=== PATIENT | female | born 1960 | race American Indian/Alaskan Native ===

== ENCOUNTER 2021-12-12 00:26 | Inpatient (IN) | payer SELFPAY ==
[2021-12-12] MEDS ORDERED: IPRATROPIUM/ALBUTEROL SULFATE 3 ML AMPUL.NEB IH ONE (00:41)
--- NOTE | 2021-12-12 00:45 | Emergency Department Report ---
ED Shortness of Breath HPI - General Chief Complaint: Dyspnea/Respdistress Stated Complaint: SHORTNESS OF BREATH Time Seen by Provider: 12/12/21 00:40 Source: patient, family Mode of arrival: Wheelchair Limitations: No Limitations - History of Present Illness Initial Comments: 61-year-old female no significant past medical history presents to the hospital with complaints of shortness of breath started 15 minutes prior to arrival. Patient is noticeably tachypneic, anxious, and laying on the ground instead of the initial triage chair. Pulse oximetry reveals a room air saturation between 88 and 90%. Supplemental oxygen provided and patient transported to room. Family states that patient had an episode of shortness of breath yesterday that spontaneously improved but recurred today 15 minutes prior to arrival. Patient is vaccinated for COVID. No reported infectious symptoms. Patient is a longtime smoker without a history of COPD or asthma FABRIZIO [phone] - Related Data Allergies Allergy/AdvReac Type Severity Reaction Status Date / Time No Known Allergies Allergy Unverified 12/12/21 00:32 ED Review of Systems ROS: Stated complaint: SHORTNESS OF BREATH Other details as noted in HPI Comment: Unobtainable due to pts medical conditions ED Past Medical Hx - Past Medical History Previous Medical History?: No - Surgical History Past Surgical History?: No ED Physical Exam - General Limitations: No Limitations - Other Other exam information: General: Acute respiratory distress Head: Atraumatic Eyes: normal appearance ENT: Moist mucous membranes Neck: Normal appearance, no midline tenderness Chest: Tachypneic, poor breath sounds, accessory muscle CV: Regular rate and rhythm Abdomen: Soft, normal bowel sounds, nontender, nondistended, no rebound or guarding Back: Normal inspection Extremity: Normal inspection, full range of motion Neuro: Alert O x 3, no facial asymmetry, speech clear, no gross motor sensory deficit Skin: No rash ED Course Vital Signs 12/12/21 12/12/21 12/12/21 00:42 00:45 00:53 Pulse Rate 118 H Pulse Rate [ 108 H Anterior Bilateral Throughout] Respiratory 49 H Rate Respiratory 36 H Rate [Anterior Bilateral Throughout] Blood Pressure 173/94 O2 Sat by Pulse 97 99 Oximetry 12/12/21 12/12/21 12/12/21 01:01 01:15 01:31 Pulse Rate 111 H 103 H 98 H Pulse Rate [ Anterior Bilateral Throughout] Respiratory 34 H 37 H 32 H Rate Respiratory Rate [Anterior Bilateral Throughout] Blood Pressure 160/88 160/88 142/77 O2 Sat by Pulse 100 97 95 Oximetry - Reevaluation(s) Reevaluation #1: 12/12/21 02:00 Patient feeling better after DuoNeb and supplemental oxygen - Consultations Consultation #1: 12/12/21 02:30 case discussed with sap solution manager consultant Dr Brown who highly suspect heart failure. Does not recommend Lovenox at this time. Consult ordered ED Medical Decision Making - Lab Data Result diagrams: 12/12/21 00:49 12/12/21 00:49 Lab Results 12/12/21 12/12/21 12/12/21 Range/Units 00:49 00:49 00:49 WBC 10.3 (4.5-11.0) K/mm3 RBC 4.73 (3.65-5.03) M/mm3 Hgb 13.0 (10.1-14.3) gm/dl Hct 41.6 (30.3-42.9) % MCV 88 (79-97) fl MCH 27 L (28-32) pg MCHC 31 (30-34) % RDW 14.1 (13.2-15.2) % Plt Count 139 L (140-440) K/mm3 Lymph % (Auto) Med Surg Nurse Lymph # (Auto) Med Surg Nurse PT 14.4 (12.2-14.9) Sec. INR 1.01 (0.87-1.13) ABG pH (7.350-7.450) pH Units ABG pCO2 mm Hg ABG pO2 (80.0-90.0) mm Hg ABG HCO3 (20.0-26.0) mmol/L ABG O2 Saturation (95.0-99.0) % ABG O2 Content (0.0-44) ABG Base Excess (-2.0-3.0) mmol/L ABG Hemoglobin (12.0-16.0) gm/dl ABG Carboxyhemoglobin (0.0-5.0) % ABG Methemoglobin (0.0-1.5) % Oxyhemoglobin (95.0-99.0) % FiO2 % Sodium 141 (137-145) mmol/L Potassium 4.0 (3.6-5.0) mmol/L Chloride 103.8 (98-107) mmol/L Carbon Dioxide 16 L (22-30) mmol/L Anion Gap 25 mmol/L BUN 13 (7-17) mg/dL Creatinine 1.2 (0.6-1.2) mg/dL Estimated GFR 55 ml/min BUN/Creatinine Ratio 11 % Glucose 312 H (65-100) mg/dL Calcium 9.3 (8.4-10.2) mg/dL Total Bilirubin 0.50 (0.1-1.2) mg/dL AST 52 H (5-40) units/L ALT 47 (7-56) units/L Alkaline Phosphatase 57 (35-129) units/L Troponin T 0.075 H (0.00-0.029) ng/mL NT-Pro-B Natriuret Pep 85851 H (0-900) pg/mL Total Protein 6.6 (6.3-8.2) g/dL Albumin 4.3 (3.9-5) g/dL Albumin/Globulin Ratio 1.9 % 12/12/ Range/Units 01:20 WBC (4.5-11.0) K/mm3 RBC (3.65-5.03) M/mm3 Hgb (10.1-14.3) gm/dl Hct (30.3-42.9) % MCV (79-97) fl MCH (28-32) pg MCHC (30-34) % RDW (13.2-15.2) % Plt Count (140-440) K/mm3 Lymph % (Auto) Lymph # (Auto) PT (12.2-14.9) Sec. INR (0.87-1.13) ABG pH 7.367 (7.350-7.450) pH Units ABG pCO2 29.2 mm Hg ABG pO2 104.5 H (80.0-90.0) mm Hg ABG HCO3 16.4 L (20.0-26.0) mmol/L ABG O2 Saturation 97.8 (95.0-99.0) % ABG O2 Content 16.5 (0.0-44) ABG Base Excess -7.7 L (-2.0-3.0) mmol/L ABG Hemoglobin 12.3 (12.0-16.0) gm/dl ABG Carboxyhemoglobin 2.8 (0.0-5.0) % ABG Methemoglobin 0.6 (0.0-1.5) % Oxyhemoglobin 94.5 L (95.0-99.0) % FiO2 32 % Sodium (137-145) mmol/L Potassium (3.6-5.0) mmol/L Chloride (98-107) mmol/L Carbon Dioxide (22-30) mmol/L Anion Gap mmol/L BUN (7-17) mg/dL Creatinine (0.6-1.2) mg/dL Estimated GFR ml/min BUN/Creatinine Ratio % Glucose (65-100) mg/dL Calcium (8.4-10.2) mg/dL Total Bilirubin (0.1-1.2) mg/dL AST (5-40) units/L ALT (7-56) units/L Alkaline Phosphatase (35-129) units/L Troponin T (0.00-0.029) ng/mL NT-Pro-B Natriuret Pep (0-900) pg/mL Total Protein (6.3-8.2) g/dL Albumin (3.9-5) g/dL Albumin/Globulin Ratio % - EKG Data -: EKG Interpreted by Me (By atrial enlargement, PVC) EKG shows normal: sinus rhythm, intervals (Prolonged QTC 529), QRS complexes (Prolonged QRS duration 118), ST-T waves (LVH with lateral ST depressions, inferior lateral T inversions) Rate: tachycardia (102) - Radiology Data Radiology results: report reviewed XR chest 1V ap INDICATION / CLINICAL INFORMATION: sob. COMPARISON: None available. FINDINGS: SUPPORT DEVICES: None. HEART /PULMONARY VASCULATURE: Heart is enlarged with congestion of the pulmonary vasculature. LUNGS / PLEURA: Diffuse increased interstitial markings, most pronounced in the lung bases. Trace bibasilar pleural effusions. No pneumothorax. IMPRESSION: Findings suggestive of CHF with pulmonary edema and trace pleural effusions. - Medical Decision Making 61-year-old female presents to the hospital acute respiratory distress. Patient is a longtime smoker without any significant past medical history. Patient symptoms improving with bronchodilators however, chest x-ray suggestive of pulmonary edema. Abnormal EKG findings noted. Mild elevation in troponin without ST elevation MS. Case discussed with sap solution manager consultant. Lovenox I recommend this time. Aspirin provided. Patient does not endorse any chest pain. Lasix 40 mg IV provided. Covid test ordered. Patient requiring supplemental oxygen saturation for hypoxia. Patient will be admitted to the hospital service for further treatment Critical Care Time: Yes Critical care time in (mins) excluding proc time.: 35 Critical care attestation.: If time is entered above; I have spent that time in minutes in the direct care of this critically ill patient, excluding procedure time. Critical Care Time: 35 Minutes of critical care time excluding procedures were used in the care of the patient. I came immediately to the bedside upon patient's arrival. I obtained history from EMS at the bedside. I discussed treatment plan with the nursing team members. I reviewed electronic record. I spoke with family to obtain medical history. Patient required multiple interventions and reassessments. Spoke with hospitalist and consultants ED Disposition Clinical Impression: Acute respiratory failure with hypoxia, Pulmonary edema, Smoker, NSTEMI (non-ST elevated myocardial infarction), Hyperglycemia Disposition: ADMITTED INPATIENT Is pt being admited?: Yes Condition: Stable Instructions: Pulmonary Edema (ED) Time of Disposition: 02:37 (Yomienle/hospitalist)
[2021-12-12 01:12] LABS: Hematocrit 41.6 % (30.3-42.9); Mean Corpuscular HGB Conc 31 % (30-34); Mean Corpuscular Volume 88 fl (79-97); Red Blood Count 4.73 M/mm3 (3.65-5.03); Red Cell Distribution Width 14.1 % (13.2-15.2)
--- NOTE | 2021-12-12 01:12 | XRay Report ---
XR chest 1V ap INDICATION / CLINICAL INFORMATION: sob. COMPARISON: None available. FINDINGS: SUPPORT DEVICES: None. HEART /PULMONARY VASCULATURE: Heart is enlarged with congestion of the pulmonary vasculature. LUNGS / PLEURA: Diffuse increased interstitial markings, most pronounced in the lung bases. Trace bib asilar pleural effusions. No pneumothorax. IMPRESSION: Findings suggestive of CHF with pulmonary edema and trace pleural effusions. Signer Name: Rickey Plasencia MD Signed: 12/12/2021 1:08 AM Workstation Name: [id number]
[2021-12-12 01:17] LABS: Platelet Count 139 K/mm3 (140-440)
[2021-12-12 01:35] LABS: Albumin 4.3 g/dL (3.9-5); Calcium 9.3 mg/dL (8.4-10.2)
[2021-12-12] MEDS ORDERED: ASPIRIN 325 MG TAB PO ONE (01:42)
[2021-12-12] MEDS ORDERED: FUROSEMIDE 40 MG/4 ML INJ IV ONE (01:42)
[2021-12-12 01:50] LABS: INR 1.01 (0.87-1.13)
[2021-12-12 01:54] LABS: ABG Base Excess -7.7 mmol/L (-2.0-3.0); ABG HCO3 16.4 mmol/L (20.0-26.0); ABG Methemoglobin 0.6 % (0.0-1.5); ABG Oxygen Saturation 97.8 % (95.0-99.0); ABG PCO2 29.2 mm Hg; ABG PH 7.367 pH Units (7.350-7.450); ABG PO2 104.5 mm Hg (80.0-90.0)
[2021-12-12 03:13] LABS: Chol/HDL Ratio 4.69 %
[2021-12-12 03:19] LABS: Anisocytosis 1+; Basophils % (Manual) 0 % (0.0-1.8); Platelet Estimate Consistent w Auto; Total Cells Counted 100
[2021-12-12] MEDS ORDERED: ONDANSETRON 4 MG/2 ML INJ IV PRN (03:45)
[2021-12-12] MEDS ORDERED: MORPHINE 4 MG/1 ML INJ IV PRN (03:45)
[2021-12-12] MEDS ORDERED: MORPHINE 2 MG/1 ML INJ IV PRN (03:45)
[2021-12-12] MEDS ORDERED: MAGNESIUM HYDROXIDE (MOM) ORAL LIQD UDC PO PRN (03:45)
[2021-12-12] MEDS ORDERED: ACETAMINOPHEN 325 MG TAB PO PRN (03:45)
--- NOTE | 2021-12-12 03:55 | History and Physical Report ---
History of Present Illness Date of examination: 12/12/21 Date of admission: 12/12/2021 Chief complaint: Shortness of breath History of present illness: 61-year-old -[place] female with no significant past medical history presents to the emergency room today with complaints of shortness of breath prior to arriving in the emergency room. Shortness of breath was said to have been ongoing for about 15 to 30 minutes prior to arrival in the emergency room. She denies any chest pain. She denies any fever or chills, no headache or dizziness and no diaphoresis. Patient denies any sick contacts and no recent travel. Denies any contact with anyone with COVID-19. Patient is fully vaccinated against COVID-19. She admits that she is a daily tobacco smoker. Upon arrival in the emergency room patient was hypoxic with oxygen saturation of about 88 to 90%. She was subsequently placed on oxygen by nasal cannula with improvement. Work-up in the emergency room today, [place] [address]. Initial troponin of 0.075 and subsequently 0.252. Blood glucose of 312. Chest x-ray was suggestive of CHF with pulmonary edema and trace pleural effu sions. Patient being admitted for CHFnew onset, elevated troponin and hyperglycemia. Past History Past Medical History: No medical history Past Surgical History: No surgical history Social history: no significant social history Family history: no significant family history Medications and Allergies Allergies Allergy/AdvReac Type Severity Reaction Status Date / Time No Known Allergies Allergy Unverified 12/12/21 00:32 Active Meds: Active Medications Acetaminophen (Acetaminophen 325 Mg Tab) 650 mg PO Q4H PRN PRN Reason: Pain MILD(1-3)/Fever >100.5/CLARKE Furosemide (Furosemide 40 Mg/4 Ml Inj) 40 mg IV BID@0600,1800 LUIS ALBERTO Magnesium Hydroxide (Magnesium Hydroxide (Mom) Oral Liqd Udc) 30 ml PO Q4H PRN PRN Reason: Constipation Morphine Sulfate (Morphine 2 Mg/1 Ml Inj) 2 mg IV Q4H PRN PRN Reason: Pain, Moderate (4-6) Morphine Sulfate (Morphine 4 Mg/1 Ml Inj) 4 mg IV Q4H PRN PRN Reason: Pain , Severe (7-10) Ondansetron HCl (Ondansetron 4 Mg/2 Ml Inj) 4 mg IV Q8H PRN PRN Reason: Nausea And Vomiting Sodium Chloride (Sodium Chloride 0.9% 10 Ml Flush Syringe) 10 ml IV BID LUIS ALBERTO Sodium Chloride (Sodium Chloride 0.9% 10 Ml Flush Syringe) 10 ml IV PRN PRN PRN Reason: LINE FLUSH Review of Systems Constitutional: no fever, no chills Ears, nose, mouth and throat: no nasal congestion, no sore throat Cardiovascular: no chest pain, no palpitations Respiratory: no cough, no shortness of breath Gastrointestinal: no abdominal pain, no nausea, no vomiting, no diarrhea Genitourinary Female: no pelvic pain, no flank pain, no dysuria, no hematuria Musculoskeletal: no neck pain, no low back pain Integumentary: no rash, no pruritis Neurological: no headaches, no confusion Psychiatric: no anxiety, no depression Endocrine: no polyphagia, no polydipsia, no polyuria, no nocturia Exam - Constitutional Vitals: Temp Pulse Resp BP Pulse Ox 97.4 F L 101 H 36 H 155/80 99 12/12/21 02:48 12/12/21 03:15 12/12/21 03:15 12/12/21 03:15 12/12/21 03:15 General appearance: Present: no acute distress, well-nourished - EENT Eyes: Present: PERRL, EOM intact. Absent: scleral icterus ENT: hearing intact, clear oral mucosa, dentition normal - Neck Neck: Present: supple, normal ROM - Respiratory Respiratory effort: normal Respiratory: bilateral: rales - Cardiovascular Rhythm: regular Heart Sounds: Present: S1 & S2. Absent: gallop, systolic murmur, diastolic murmur, rub, click - Extremities Extremities: no ischemia, pulses intact, pulses symmetrical, No edema, normal temperature, normal color, Full ROM Peripheral Pulses: within normal limits - Abdominal General gastrointestinal: Present: soft, non-tender, non-distended, normal bowel sounds. Absent: mass - Integumentary Integumentary: Present: clear, warm, dry, normal turgor. Absent: rash - Musculoskeletal Musculoskeletal: strength equal bilaterally - Psychiatric Psychiatric: appropriate mood/affect, intact judgment & insight, memory intact, cooperative - Neurologic Neurologic: CNII-XII intact, no focal deficits, moves all extremities HEART Score - HEART Score Troponin: Troponin T 0.075 ng/mL (0.00-0.029) H 12/12/21 00:49 Results - Labs CBC & Chem 7: 12/12/21 00:49 12/12/21 00:49 Labs: Abnormal lab results 12/12/21 12/12/21 12/12/21 Range/Units 00:49 00:49 01:20 MCH 27 L (28-32) pg Plt Count 139 L (140-440) K/mm3 Lymphocytes % (Manual) 55.0 H (13.4-35.0) % Lymphocytes # (Manual) 5.7 H (1.2-5.4) K/mm3 APTT (24.2-36.6) Sec. ABG pO2 104.5 H (80.0-90.0) mm Hg ABG HCO3 16.4 L (20.0-26.0) mmol/L ABG Base Excess -7.7 L (-2.0-3.0) mmol/L Oxyhemoglobin 94.5 L (95.0-99.0) % Carbon Dioxide 16 L (22-30) mmol/L Glucose 312 H (65-100) mg/dL AST 52 H (5-40) units/L Troponin T 0.075 H (0.00-0.029) ng/mL NT-Pro-B Natriuret Pep 20135 H (0-900) pg/mL Cholesterol 244 H (50-199) mg/dL LDL Cholesterol Direct 174 H (50-130) mg/dL 12/12/21 Range/Units 02:09 MCH (28-32) pg Plt Count (140-440) K/mm3 Lymphocytes % (Manual) (13.4-35.0) % Lymphocytes # (Manual) (1.2-5.4) K/mm3 APTT 22.7 L (24.2-36.6) Sec. ABG pO2 (80.0-90.0) mm Hg ABG HCO3 (20.0-26.0) mmol/L ABG Base Excess (-2.0-3.0) mmol/L Oxyhemoglobin (95.0-99.0) % Carbon Dioxide (22-30) mmol/L Glucose (65-100) mg/dL AST (5-40) units/L Troponin T (0.00-0.029) ng/mL NT-Pro-B Natriuret Pep (0-900) pg/mL Cholesterol (50-199) mg/dL LDL Cholesterol Direct (50-130) mg/dL Assessment and Plan - Patient Problems (1) Acute respiratory failure with hypoxia Current Visit: Yes Status: Acute Plan to address problem: Possibly secondary to new onset CHF. Patient started on diuretics. (2) Hyperglycemia Current Visit: Yes Status: Acute Plan to address problem: We will monitor Accu-Cheks. Patient is not a known diabetic. We will also check hemoglobin A1c. (3) NSTEMI (non-ST elevated myocardial infarction) Current Visit: Yes Status: Acute Plan to address problem: Possibly troponin leak. We will trend troponin levels. Will await further evaluation and recommendations by cardiology. (4) Pulmonary edema Current Visit: Yes Status: Acute Plan to address problem: Patient placed on diuretics. We will schedule for echocardiogram. Will monitor inputs and outputs and also monitor daily weight. (5) Smoker Current Visit: Yes Status: Acute Plan to address problem: Counseled on quitting tobacco use. WILL offer nicotine patch as needed. (6) DVT prophylaxis Current Visit: Yes Status: Acute Plan to address problem: Patient on anticoagulation with heparin. (7) Full code status Current Visit: Yes Status: Acute Plan to address problem: Patient is full code.
[2021-12-12 05:34] LABS: Bilirubin,Urine NEG (Negative); Blood,Urine NEG (Negative); Color,Urine Colorless (Yellow); Protein,Urine <15 mg/dL mg/dL (Negative); Urobilinogen,Urine < 2.0 mg/dL (<2.0)
[2021-12-12 05:40] LABS: RBC,Urine < 1.0 /HPF (0.0-6.0); WBC,Urine < 1.0 /HPF (0.0-6.0)
[2021-12-12] MEDS: FUROSEMIDE 40 MG/4 ML INJ IV SCH ×2 (05:59→17:37)
[2021-12-12] MEDS ORDERED: HEPARIN 10,000 UNITS/10 ML VIAL IV ONE (06:23)
[2021-12-12] MEDS ORDERED: HEPARIN 10,000 UNITS/10 ML VIAL IV PRN (06:23)
[2021-12-12] MEDS ORDERED: HEPARIN/ 0.45% NACL DRIP 25,000 UNIT/500 ML BAG IV SCH (07:00)
[2021-12-12] MEDS ORDERED: DEXTROSE 50% IN WATER (25GM) 50 ML SYRINGE IV PRN ×2 (07:28→08:49)
[2021-12-12] MEDS: INSULIN LISPRO 100 UNIT/ML SUB-Q SCH ×4 (07:34→22:00)
[2021-12-12] MEDS ORDERED: DEXTROSE 10% *Hypoglycemia IV PRN (07:41)
[2021-12-12 07:42] LABS: Hematocrit 41.4 % (30.3-42.9); INR 0.95 (0.87-1.13)
[2021-12-12 07:43] LABS: Partial Thromboplastin Time 24.8 Sec. (24.2-36.6)
--- NOTE | 2021-12-12 08:49 | Progress Note ---
Assessment and Plan Assessment and plan: 61-year-old -[place] female with no significant past medical history except tobacco abuse who presents to the emergency room today with complaints of dyspnea. Upon arrival in the emergency room, patient was noted to be hypoxic with oxygen saturation of about 88 to 90%. She was subsequently placed on oxygen by nasal cannula with improvement. Work-up in the emergency room [place] [address]. Initial troponin of 0.075 and subsequently 0.252. Blood glucose of 312. Chest x-ray was suggestive of CHF with pulmonary edema and trace pleural effusions. The patient was admitted with diagnosis below: Acute hypoxic respiratory failure NSTEMI Newly diagnosed diabetes mellitus, hyperglycemia Acute CHF. Tobacco abuse 12/12/2021. We will follow-up echocardiogram to assess systolic and diastolic function. Await cardiology consultation. Continue aspirin, Lasix IV twice daily and heparin drip for now. The patient will need initiation with beta-b locker. With regards to the newly diagnosed DM type II, we will obtain hemoglobin A1c. Start SSRI and Accu-Cheks. Continue O2 to maintain sats greater than 92% History Interval history: No new issues since admission Hospitalist Physical - Constitutional Vitals: Temp Pulse Resp BP Pulse Ox 97.4 F L 75 24 168/91 98 12/12/21 02:48 12/12/21 06:45 12/12/21 06:45 12/12/21 08:01 12/12/21 08:01 General appearance: Present: no acute distress, well-nourished - EENT Eyes: Present: PERRL, EOM intact ENT: hearing intact, clear oral mucosa, dentition normal - Neck Neck: Present: supple, normal ROM - Respiratory Respiratory effort: normal Respiratory: bilateral: CTA - Cardiovascular Rhythm: regular Heart Sounds: Present: S1 & S2. Absent: gallop, rub - Extremities Extremities: no ischemia, No edema, Full ROM - Abdominal General gastrointestinal: soft, non-tender, non-distended, normal bowel sounds - Integumentary Integumentary: Present: clear, warm, dry - Neurologic Neurologic: CNII-XII intact, moves all extremities HEART Score - HEART Score Troponin: Troponin T 0.252 ng/mL (0.00-0.029) H* D 12/12/21 04:59 Results - Labs CBC & Chem 7: 12/12/21 06:50 02/20/22 00:49 Labs: Laboratory Last Values WBC 10.3 K/mm3 (4.5-11.0) 12/12/21 00:49 RBC 4.73 M/mm3 (3.65-5.03) 12/12/21 00:49 Hgb 13.0 gm/dl (10.1-14.3) 12/12/21 06:50 Hct 41.4 % (30.3-42.9) 12/12/21 06:50 MCV 88 fl (79-97) 12/12/21 00:49 MCH 27 pg (28-32) L 12/12/21 00:49 MCHC 31 % (30-34) 12/12/21 00:49 RDW 14.1 % (13.2-15.2) 12/12/21 00:49 Plt Count 139 K/mm3 (140-440) L 12/12/21 00:49 Lymph % (Auto) Recording Studio Setup Worker 12/12/21 00:49 Lymph # (Auto) Recording Studio Setup Worker 12/12/21 00:49 Add Manual Diff Complete 12/12/21 00:49 Total Counted 100 12/12/21 00:49 Seg Neuts % (Manual) 41.0 % (40.0-70.0) 12/12/21 00:49 Band Neutrophils % 0 % 12/12/21 00:49 Lymphocytes % (Manual) 55.0 % (13.4-35.0) H 12/12/21 00:49 Reactive Lymphs % (Man) 0 % 12/12/21 00:49 Monocytes % (Manual) 2.0 % (0.0-7.3) 12/12/21 00:49 Eosinophils % (Manual) 2.0 % (0.0-4.3) 12/12/21 00:49 Basophils % (Manual) 0 % (0.0-1.8) 12/12/21 00:49 Metamyelocytes % 0 % 12/12/21 00:49 Myelocytes % 0 % 12/12/21 00:49 Promyelocytes % 0 % 12/12/21 00:49 Blast Cells % 0 % 12/12/21 00:49 Nucleated RBC % Not Reportable 12/12/21 00:49 Seg Neutrophils # Man 4.2 K/mm3 (1.8-7.7) 12/12/21 00:49 Band Neutrophils # 0.0 K/mm3 12/12/21 00:49 Lymphocytes # (Manual) 5.7 K/mm3 (1.2-5.4) H 12/12/21 00:49 Abs React Lymphs (Man) 0.0 K/mm3 12/12/21 00:49 Monocytes # (Manual) 0.2 K/mm3 (0.0-0.8) 12/12/21 00:49 Eosinophils # (Manual) 0.2 K/mm3 (0.0-0.4) 12/12/21 00:49 Basophils # (Manual) 0.0 K/mm3 (0.0-0.1) 12/12/21 00:49 Metamyelocytes # 0.0 K/mm3 12/12/21 00:49 Myelocytes # 0.0 K/mm3 12/12/21 00:49 Promyelocytes # 0.0 K/mm3 12/12/21 00:49 Blast Cells # 0.0 K/mm3 12/12/21 00:49 WBC Morphology Not Reportable 12/12/21 00:49 Hypersegmented Neuts Not Reportable 12/12/21 00:49 Hyposegmented Neuts Not Reportable 12/12/21 00:49 Hypogranular Neuts Not Reportable 12/12/21 00:49 Smudge Cells Not Reportable 12/12/21 00:49 Toxic Granulation Not Reportable 12/12/21 00:49 Toxic Vacuolation Not Reportable 12/12/21 00:49 Dohle Bodies Not Reportable 12/12/21 00:49 Pelger-Huet Anomaly Not Reportable 12/12/21 00:49 Silvano Rods Not Reportable 12/12/21 00:49 Platelet Estimate Consistent w auto 12/12/21 00:49 Clumped Platelets Not Reportable 12/12/21 00:49 Plt Clumps, EDTA Not Reportable 12/12/21 00:49 Large Platelets Not Reportable 12/12/21 00:49 Giant Platelets Not Reportable 12/12/21 00:49 Platelet Satelliting Not Reportable 12/12/21 00:49 Plt Morphology Comment Not Reportable 12/12/21 00:49 RBC Morphology Not Reportable 12/12/21 00:49 Dimorphic RBCs Not Reportable 12/12/21 00:49 Polychromasia Not Reportable 12/12/21 00:49 Hypochromasia Not Reportable 12/12/21 00:49 Poikilocytosis Not Reportable 12/12/21 00:49 Anisocytosis 1+ 12/12/21 00:49 Microcytosis Not Reportable 12/12/21 00:49 Macrocytosis Not Reportable 12/12/21 00:49 Spherocytes Not Reportable 12/12/21 00:49 Pappenheimer Bodies Not Reportable 12/12/21 00:49 Sickle Cells Not Reportable 12/12/21 00:49 Target Cells Not Reportable 12/12/21 00:49 Tear Drop Cells Not Reportable 12/12/21 00:49 Ovalocytes Not Reportable 12/12/21 00:49 Helmet Cells Not Reportable 12/12/21 00:49 [place] Bodies Not Reportable 12/12/21 00:49 [place] Rings Not Reportable 12/12/21 00:49 [place] Cells Not Reportable 12/12/21 00:49 Bite Cells Not Reportable 12/12/21 00:49 Crenated Cell Not Reportable 12/12/21 00:49 Elliptocytes Not Reportable 12/12/21 00:49 Acanthocytes (Spur) Not Reportable 12/12/21 00:49 Rouleaux Not Reportable 12/12/21 00:49 Hemoglobin C Crystals Not Reportable 12/12/21 00:49 Schistocytes Not Reportable 12/12/21 00:49 Malaria parasites Not Reportable 12/12/21 00:49 Laurent Bodies Not Reportable 12/12/21 00:49 Hem Pathologist Commnt No 12/12/21 00:49 PT 13.7 Sec. (12.2-14.9) 12/12/21 06:50 INR 0.95 (0.87-1.13) 12/12/21 06:50 APTT 24.8 Sec. (24.2-36.6) 12/12/21 06:50 ABG pH 7.367 pH Units (7.350-7.450) 12/12/21 01:20 ABG pCO2 29.2 mm Hg 12/12/21 01:20 ABG pO2 104.5 mm Hg (80.0-90.0) H 12/12/21 01:20 ABG HCO3 16.4 mmol/L (20.0-26.0) L 12/12/21 01:20 ABG O2 Saturation 97.8 % (95.0-99.0) 12/12/21 01:20 ABG O2 Content 16.5 (0.0-44) 12/12/21 01:20 ABG Base Excess -7.7 mmol/L (-2.0-3.0) L 12/12/21 01:20 ABG Hemoglobin 12.3 gm/dl (12.0-16.0) 12/12/21 01:20 ABG Carboxyhemoglobin 2.8 % (0.0-5.0) 12/12/21 01:20 ABG Methemoglobin 0.6 % (0.0-1.5) 12/12/21 01:20 Oxyhemoglobin 94.5 % (95.0-99.0) L 12/12/21 01:20 FiO2 32 % 12/12/21 01:20 Sodium 141 mmol/L (137-145) 12/12/21 00:49 Potassium 4.0 mmol/L (3.6-5.0) 12/12/21 00:49 Chloride 103.8 mmol/L (98-107) 12/12/21 00:49 Carbon Dioxide 16 mmol/L (22-30) L 12/12/21 00:49 Anion Gap 25 mmol/L 12/12/21 00:49 BUN 13 mg/dL (7-17) 12/12/21 00:49 Creatinine 1.2 mg/dL (0.6-1.2) 12/12/21 00:49 Estimated GFR 55 ml/min 12/12/21 00:49 BUN/Creatinine Ratio 11 % 12/12/21 00:49 Glucose 312 mg/dL (65-100) H 12/12/21 00:49 POC Glucose 130 mg/dL (70-105) H 12/12/21 07:33 Hemoglobin A1c 5.3 % (4-6) 12/12/21 06:50 Calcium 9.3 mg/dL (8.4-10.2) 12/12/21 00:49 Magnesium 2.30 mg/dL (1.7-2.3) 12/12/21 02:09 Total Bilirubin 0.50 mg/dL (0.1-1.2) 12/12/21 00:49 AST 52 units/L (5-40) H 12/12/21 00:49 ALT 47 units/L (7-56) 12/12/21 00:49 Alkaline Phosphatase 57 units/L (35-129) 12/12/21 00:49 Troponin T 0.252 ng/mL (0.00-0.029) H* D 12/12/21 04:59 NT-Pro-B Natriuret Pep 89740 pg/mL (0-900) H 12/12/21 00:49 Total Protein 6.6 g/dL (6.3-8.2) 12/12/21 00:49 Albumin 4.3 g/dL (3.9-5) 12/12/21 00:49 Albumin/Globulin Ratio 1.9 % 12/12/21 00:49 Triglycerides 107 mg/dL (2-149) 12/12/21 00:49 Cholesterol 244 mg/dL (50-199) H 12/12/21 00:49 LDL Cholesterol Direct 174 mg/dL (50-130) H 12/12/21 00:49 HDL Cholesterol 52 mg/dL (40-59) 12/12/21 00:49 Cholesterol/HDL Ratio 4.69 % 12/12/21 00:49 Urine Color Colorless (Yellow) 12/12/21 05:00 Urine Turbidity Clear (Clear) 12/12/21 05:00 Urine pH 5.0 (5.0-7.0) 12/12/21 05:00 Ur Specific [place] 1.004 (1.003-1.030) 12/12/21 05:00 Urine Protein <15 mg/dl mg/dL (Negative) 12/12/21 05:00 Urine Glucose (UA) Neg mg/dL (Negative) 12/12/21 05:00 Urine Ketones Neg mg/dL (Negative) 12/12/21 05:00 Urine Blood Neg (Negative) 12/12/21 05:00 Urine Nitrite Neg (Negative) 12/12/21 05:00 Urine Bilirubin Neg (Negative) 12/12/21 05:00 Urine Urobilinogen < 2.0 mg/dL (<2.0) 12/12/21 05:00 Ur Leukocyte Esterase Neg (Negative) 12/12/21 05:00 Urine WBC (Auto) < 1.0 /HPF (0.0-6.0) 12/12/21 05:00 Urine RBC (Auto) < 1.0 /HPF (0.0-6.0) 12/12/21 05:00 U Epithel Cells (Auto) < 1.0 /HPF (0-13.0) 12/12/21 05:00 Active Medications - Current Medications Current Medications: Generic Name Dose Route Start Last Admin Trade Name Freq PRN Reason Stop Dose Admin Acetaminophen 650 mg 12/12/21 03:45 Acetaminophen 325 Mg Tab PO Q4H PRN Pain MILD(1-3)/Fever >100.5/CLARKE Dextrose 0 ml 12/12/21 07:41 Dextrose 10% *Hypoglycemia IV PRN PRN Hypoglycemia Furosemide 40 mg 12/12/21 06:00 12/12/21 05:59 Furosemide 40 Mg/4 Ml Inj IV 40 mg BID@0600,1800 [facility] Administration Heparin Sodium (Porcine) 1,800 unit 12/12/21 06:23 Heparin 10,000 Units/10 Ml Vial 40 unit/kg (1800 unit) IV Q6H PRN Anti-Xa Assay < 0.1 units/ml Heparin Sodium/Sodium Chloride 25,000 unit in 500 mls @ 14 mls/hr 12/12/21 07:00 Heparin/ 0.45% Nacl-25,000 Unit/500 Ml IV TITRATE [facility] Protocol 700 UNITS/HR Insulin Human Lispro 0 unit 12/12/21 07:30 12/12/21 07:34 Insulin Lispro 100 Unit/Ml SUB-Q Not Given ACHS [facility] Protocol Magnesium Hydroxide 30 ml 12/12/21 03:45 Magnesium Hydroxide (Mom) Oral Liqd Udc PO Q4H PRN Constipation Morphine Sulfate 2 mg 12/12/21 03:45 Morphine 2 Mg/1 Ml Inj IV Q4H PRN Pain, Moderate (4-6) Morphine Sulfate 4 mg 12/12/21 03:45 Morphine 4 Mg/1 Ml Inj IV Q4H PRN Pain , Severe (7-10) Ondansetron HCl 4 mg 12/12/21 03:45 Ondansetron 4 Mg/2 Ml Inj IV Q8H PRN Nausea And Vomiting Sodium Chloride 10 ml 12/12/21 10:00 Sodium Chloride 0.9% 10 Ml Flush Syringe IV BID LUIS ALBERTO Sodium Chloride 10 ml 12/12/21 03:45 Sodium Chloride 0.9% 10 Ml Flush Syringe IV PRN PRN LINE FLUSH
--- NOTE | 2021-12-12 12:07 | Consultation ---
DATE OF CONSULTATION: 12/12/2021 REFERRING PHYSICIAN: Hospitalist service and Dr. Dunaway in the ER. HISTORY OF PRESENT ILLNESS: The patient is a 61-year-old -[place] female who has not been connected in the medical system for many years, presents with shortness of breath over the past several months. She is fully vaccinated from COVID. She denies any chest pain, but states she has gotten worsening shortness of breath when lying flat over the past several months, worse over the past week. No chest pain, syncope or presyncope. She is seen on telemetry. She states she feels much better. She has been" peeing a lot." She states her swelling is better. No fevers, chills, nausea or vomiting. No headache, blurred vision, skin rashes and so forth. INPATIENT AND OUTPATIENT MEDICATIONS: Reviewed. SOCIAL HISTORY: Nonsmoker, nondrinker. FAMILY HISTORY: No family history of premature heart disease. ALLERGIES: No known drug, food or environmental allergies. PHYSICAL EXAMINATION: VITAL SIGNS: Blood pressure is 127/80. She is afebrile. Tele reveals sinus rhythm in the 80s and 90s. No dysrhythmias. GENERAL: This is a middle-aged -[place] female, appears older than stated age. No apparent distress. HEENT: Sclerae are anicteric. PERRL. NECK: Supple. No masses, no JVD. CHEST: Clear to auscultation bilaterally. Good air movement. CARDIOVASCULAR: Regular rhythm, S1, S2. ABDOMEN: Soft, nontender, nondistended. Normoactive bowel sounds in 4 quadrants. No mass or bruits. EXTREMITIES: No cyanosis, clubbing or edema. Good peripheral pulses. SKIN: Intact. No rashes. LABORATORY DATA: EKG reveals normal sinus rhythm, heart rate of 102, LVH with interventricular conduction abnormality, biatrial enlargement. Chest x-ray shows bilateral increased interstitial markings. Lab data reveals a creatinine of 1.2. Troponin 0.2. ProBNP of 27,000. LDL 174. I just read her echocardiogram, which shows ejection fraction of 15-20%, moderate , mild AI. ASSESSMENT: The patient is a pleasant 61-year-old -[place] female. 1. Acute heart failure with reduced ejection fraction in the milieu of a newly diagnosed severe cardiomyopathy with ejection fraction of 15-20% in the background of at least moderate aortic stenosis with mild aortic insufficiency. 2. The patient is clinically significantly improved. Able to lie flat. No active symptoms. We will discontinue IV heparin. Continue IV Lasix. We will add low dose beta rebecca. Given her volume status is much improved, significant cardiomyopathy and valvulopathy, we will proceed with left heart catheterization in a.m. No history of dye allergy or renal issues. Thank you for this consultation. I will be happy following with you. TID: [id number] RECEIPT: [id number] SBM/RIS
[2021-12-12] MEDS ORDERED: carvediloL 3.125 MG TAB PO SCH (22:00)
[2021-12-12] MEDS ORDERED: HEPARIN 5,000 UNIT/1 ML VIAL SUB-Q SCH (22:00)
[2021-12-13] MEDS: FUROSEMIDE 40 MG/4 ML INJ IV SCH (05:59)
[2021-12-13 07:28] LABS: Basophils % (Auto) 0.5 % (0.0-1.8); Eosinophils # (Auto) 0.1 K/mm3 (0.0-0.4); Hematocrit 35.7 % (30.3-42.9); Lymphocytes # (Auto) 2.4 K/mm3 (1.2-5.4); Lymphocytes % (Auto) 40.7 % (13.4-35.0); Mean Corpuscular HGB Conc 34 % (30-34); Mean Corpuscular Volume 85 fl (79-97); Monocytes # (Auto) 0.4 K/mm3 (0.0-0.8); Monocytes % (Auto) 6.1 % (0.0-7.3); Red Blood Count 4.21 M/mm3 (3.65-5.03); Red Cell Distribution Width 13.4 % (13.2-15.2)
[2021-12-13 07:33] LABS: Platelet Count 119 K/mm3 (140-440)
[2021-12-13 07:40] LABS: Alanine Aminotransferase 30 units/L (7-56); Albumin 3.8 g/dL (3.9-5); BUN/Creatinine Ratio 18; Blood Urea Nitrogen 18 mg/dL (7-17); Calcium 9.4 mg/dL (8.4-10.2); Hemolysis Index 2
--- NOTE | 2021-12-13 09:40 | Progress Note ---
Assessment and Plan Assessment and plan: 61-year-old -[place] female with no significant past medical history except tobacco abuse who presents to the emergency room today with complaints of dyspnea. Upon arrival in the emergency room, patient was noted to be hypoxic with oxygen saturation of about 88 to 90%. She was subsequently placed on oxygen by nasal cannula with improvement. Work-up in the emergency room revealed [place] [address]. Initial troponin of 0.075 and subsequently 0.252. Blood glucose of 312. Chest x-ray was suggestive of CHF with pulmonary edema and trace pleural effusions. The patient was admitted with diagnosis below: Acute hypoxic respiratory failure NSTEMI Newly diagnosed diabetes mellitus, hyperglycemia Acute systolic heart failure. EF 15-20% Cardiomyopathy. Tobacco abuse 12/12/2021. We will follow-up echocardiogram to assess systolic and diastolic function. Await cardiology consultation. Continue aspirin, Lasix IV twice daily and heparin drip for now. The patient will need initiation with beta- rebecca. With regards to the newly diagnosed DM type II, we will obtain hemoglobin A1c. Start SSRI and Accu-Cheks. Continue O2 to maintain sats greater than 92% 12/13/2021. Echocardiogram reveals left ventricular systolic function severely decreased with EF of 15-20% there is severe global hypokinesis of the left ventricle. Troponins have been elevated. Continue GDMT with aspirin, Coreg. Lasix was held today due to hypotension. Also REHANA inhibitor not initiated secondary to hypotension. Await cardiology consultation. Patient will likely need ischemic evaluation prior to discharge. Follow-up hemoglobin A1c given the hyperglycemia on admission History Interval history: No new issues since admission Hospitalist Physical - Constitutional Vitals: Temp Pulse Resp BP Pulse Ox 98.2 F 74 18 116/59 96 12/13/21 08:17 12/13/21 08:17 12/13/21 08:17 12/13/21 08:17 12/13/21 08:17 General appearance: Present: no acute distress, well-nourished - EENT Eyes: Present: PERRL, EOM intact ENT: hearing intact, clear oral mucosa, dentition normal - Neck Neck: Present: supple, normal ROM - Respiratory Respiratory effort: normal Respiratory: bilateral: CTA - Cardiovascular Rhythm: regular Heart Sounds: Present: S1 & S2. Absent: gallop, rub - Extremities Extremities: no ischemia, No edema, Full ROM - Abdominal General gastrointestinal: soft, non-tender, non-distended, normal bowel sounds - Integumentary Integumentary: Present: clear, warm, dry - Neurologic Neurologic: CNII-XII intact, moves all extremities HEART Score - HEART Score Troponin: Troponin T 0.252 ng/mL (0.00-0.029) H* D 12/12/21 04:59 Results - Labs CBC & Chem 7: 12/13/21 06:56 12/13/21 06:56 Labs: Laboratory Last Values WBC 6.0 K/mm3 (4.5-11.0) 12/13/21 06:56 RBC 4.21 M/mm3 (3.65-5.03) 12/13/21 06:56 Hgb 12.0 gm/dl (10.1-14.3) 12/13/21 06:56 Hct 35.7 % (30.3-42.9) 12/13/21 06:56 MCV 85 fl (79-97) 12/13/21 06:56 MCH 28 pg (28-32) 12/13/21 06:56 MCHC 34 % (30-34) 12/13/21 06:56 RDW 13.4 % (13.2-15.2) 12/13/21 06:56 Plt Count 119 K/mm3 (140-440) L 12/13/21 06:56 Lymph % (Auto) 40.7 % (13.4-35.0) H 12/13/21 06:56 Murray % (Auto) 6.1 % (0.0-7.3) 12/13/21 06:56 Eos % (Auto) 1.0 % (0.0-4.3) 12/13/21 06:56 Baso % (Auto) 0.5 % (0.0-1.8) 12/13/21 06:56 Lymph # (Auto) 2.4 K/mm3 (1.2-5.4) 12/13/21 06:56 [place] # (Auto) 0.4 K/mm3 (0.0-0.8) 12/13/21 06:56 Eos # (Auto) 0.1 K/mm3 (0.0-0.4) 12/13/21 06:56 Baso # (Auto) 0.0 K/mm3 (0.0-0.1) 12/13/21 06:56 Add Manual Diff Complete 12/12/21 00:49 Total Counted 100 12/12/21 00:49 Seg Neutrophils % 51.7 % (40.0-70.0) 12/13/21 06:56 Seg Neuts % (Manual) 41.0 % (40.0-70.0) 12/12/21 00:49 Band Neutrophils % 0 % 12/12/21 00:49 Lymphocytes % (Manual) 55.0 % (13.4-35.0) H 12/12/21 00:49 Reactive Lymphs % (Man) 0 % 12/12/21 00:49 Monocytes % (Manual) 2.0 % (0.0-7.3) 12/12/21 00:49 Eosinophils % (Manual) 2.0 % (0.0-4.3) 12/12/21 00:49 Basophils % (Manual) 0 % (0.0-1.8) 12/12/21 00:49 Metamyelocytes % 0 % 12/12/21 00:49 Myelocytes % 0 % 12/12/21 00:49 Promyelocytes % 0 % 12/12/21 00:49 Blast Cells % 0 % 12/12/21 00:49 Nucleated RBC % Not Reportable 12/12/21 00:49 Seg Neutrophils # 3.1 K/mm3 (1.8-7.7) 12/13/21 06:56 Seg Neutrophils # Man 4.2 K/mm3 (1.8-7.7) 12/12/21 00:49 Band Neutrophils # 0.0 K/mm3 12/12/21 00:49 Lymphocytes # (Manual) 5.7 K/mm3 (1.2-5.4) H 12/12/21 00:49 Abs React Lymphs (Man) 0.0 K/mm3 12/12/21 00:49 Monocytes # (Manual) 0.2 K/mm3 (0.0-0.8) 12/12/21 00:49 Eosinophils # (Manual) 0.2 K/mm3 (0.0-0.4) 12/12/21 00:49 Basophils # (Manual) 0.0 K/mm3 (0.0-0.1) 12/12/21 00:49 Metamyelocytes # 0.0 K/mm3 12/12/21 00:49 Myelocytes # 0.0 K/mm3 12/12/21 00:49 Promyelocytes # 0.0 K/mm3 12/12/21 00:49 Blast Cells # 0.0 K/mm3 12/12/21 00:49 WBC Morphology Not Reportable 12/12/21 00:49 Hypersegmented Neuts Not Reportable 12/12/21 00:49 Hyposegmented Neuts Not Reportable 12/12/21 00:49 Hypogranular Neuts Not Reportable 12/12/21 00:49 Smudge Cells Not Reportable 12/12/21 00:49 Toxic Granulation Not Reportable 12/12/21 00:49 Toxic Vacuolation Not Reportable 12/12/21 00:49 Dohle Bodies Not Reportable 12/12/21 00:49 Pelger-Huet Anomaly Not Reportable 12/12/21 00:49 Silvano Rods Not Reportable 12/12/21 00:49 Platelet Estimate Consistent w auto 12/12/21 00:49 Clumped Platelets Not Reportable 12/12/21 00:49 Plt Clumps, EDTA Not Reportable 12/12/21 00:49 Large Platelets Not Reportable 12/12/21 00:49 Giant Platelets Not Reportable 12/12/21 00:49 Platelet Satelliting Not Reportable 12/12/21 00:49 Plt Morphology Comment Not Reportable 12/12/21 00:49 RBC Morphology Not Reportable 12/12/21 00:49 Dimorphic RBCs Not Reportable 12/12/21 00:49 Polychromasia Not Reportable 12/12/21 00:49 Hypochromasia Not Reportable 12/12/21 00:49 Poikilocytosis Not Reportable 12/12/21 00:49 Anisocytosis 1+ 12/12/21 00:49 Microcytosis Not Reportable 12/12/21 00:49 Macrocytosis Not Reportable 12/12/21 00:49 Spherocytes Not Reportable 12/12/21 00:49 Pappenheimer Bodies Not Reportable 12/12/21 00:49 Sickle Cells Not Reportable 12/12/21 00:49 Target Cells Not Reportable 12/12/21 00:49 Tear Drop Cells Not Reportable 12/12/21 00:49 Ovalocytes Not Reportable 12/12/21 00:49 Helmet Cells Not Reportable 12/12/21 00:49 [place] Bodies Not Reportable 12/12/21 00:49 [place] Rings Not Reportable 12/12/21 00:49 Yareli Cells Not Reportable 12/12/21 00:49 Bite Cells Not Reportable 12/12/21 00:49 Crenated Cell Not Reportable 12/12/21 00:49 Elliptocytes Not Reportable 12/12/21 00:49 Acanthocytes (Spur) Not Reportable 12/12/21 00:49 Rouleaux Not Reportable 12/12/21 00:49 Hemoglobin C Crystals Not Reportable 12/12/21 00:49 Schistocytes Not Reportable 12/12/21 00:49 Malaria parasites Not Reportable 12/12/21 00:49 Laurent Bodies Not Reportable 12/12/21 00:49 Hem Pathologist Commnt No 12/12/21 00:49 PT 13.7 Sec. (12.2-14.9) 12/12/21 06:50 INR 0.95 (0.87-1.13) 12/12/21 06:50 APTT 24.8 Sec. (24.2-36.6) 12/12/21 06:50 Heparin Anti-Xa Level 0.55 U.I./ml (0.3-0.7) 12/12/21 15:41 ABG pH 7.367 pH Units (7.350-7.450) 12/12/21 01:20 ABG pCO2 29.2 mm Hg 12/12/21 01:20 ABG pO2 104.5 mm Hg (80.0-90.0) H 12/12/21 01:20 ABG HCO3 16.4 mmol/L (20.0-26.0) L 12/12/21 01:20 ABG O2 Saturation 97.8 % (95.0-99.0) 12/12/21 01:20 ABG O2 Content 16.5 (0.0-44) 12/12/21 01:20 ABG Base Excess -7.7 mmol/L (-2.0-3.0) L 12/12/21 01:20 ABG Hemoglobin 12.3 gm/dl (12.0-16.0) 12/12/21 01:20 ABG Carboxyhemoglobin 2.8 % (0.0-5.0) 12/12/21 01:20 ABG Methemoglobin 0.6 % (0.0-1.5) 12/12/21 01:20 Oxyhemoglobin 94.5 % (95.0-99.0) L 12/12/21 01:20 FiO2 32 % 12/12/21 01:20 Sodium 136 mmol/L (137-145) L 12/13/21 06:56 Potassium 3.5 mmol/L (3.6-5.0) L 12/13/21 06:56 Chloride 99.8 mmol/L (98-107) 12/13/21 06:56 Carbon Dioxide 23 mmol/L (22-30) D 12/13/21 06:56 Anion Gap 17 mmol/L 12/13/21 06:56 BUN 18 mg/dL (7-17) H 12/13/21 06:56 Creatinine 1.0 mg/dL (0.6-1.2) 12/13/21 06:56 Estimated GFR > 60 ml/min 12/13/21 06:56 BUN/Creatinine Ratio 18 % 12/13/21 06:56 Glucose 95 mg/dL (65-100) 12/13/21 06:56 POC Glucose 121 mg/dL (70-105) H 12/12/21 21:10 Hemoglobin A1c 5.3 % (4-6) 12/12/21 06:50 Calcium 9.4 mg/dL (8.4-10.2) 12/13/21 06:56 Magnesium 2.30 mg/dL (1.7-2.3) 12/12/21 02:09 Total Bilirubin 0.40 mg/dL (0.1-1.2) 12/13/21 06:56 AST 28 units/L (5-40) 12/13/21 06:56 ALT 30 units/L (7-56) 12/13/21 06:56 Alkaline Phosphatase 46 units/L (35-129) 12/13/21 06:56 Troponin T 0.252 ng/mL (0.00-0.029) H* D 12/12/21 04:59 NT-Pro-B Natriuret Pep 66121 pg/mL (0-900) H 12/12/21 00:49 Total Protein 6.6 g/dL (6.3-8.2) 12/13/21 06:56 Albumin 3.8 g/dL (3.9-5) L 12/13/21 06:56 Albumin/Globulin Ratio 1.4 % 12/13/21 06:56 Triglycerides 107 mg/dL (2-149) 12/12/21 00:49 Cholesterol 244 mg/dL (50-199) H 12/12/21 00:49 LDL Cholesterol Direct 174 mg/dL (50-130) H 12/12/21 00:49 HDL Cholesterol 52 mg/dL (40-59) 12/12/21 00:49 Cholesterol/HDL Ratio 4.69 % 12/12/21 00:49 Urine Color Colorless (Yellow) 12/12/21 05:00 Urine Turbidity Clear (Clear) 12/12/21 05:00 Urine pH 5.0 (5.0-7.0) 12/12/21 05:00 Ur Specific [place] 1.004 (1.003-1.030) 12/12/21 05:00 Urine Protein <15 mg/dl mg/dL (Negative) 12/12/21 05:00 Urine Glucose (UA) Neg mg/dL (Negative) 12/12/21 05:00 Urine Ketones Neg mg/dL (Negative) 12/12/21 05:00 Urine Blood Neg (Negative) 12/12/21 05:00 Urine Nitrite Neg (Negative) 12/12/21 05:00 Urine Bilirubin Neg (Negative) 12/12/21 05:00 Urine Urobilinogen < 2.0 mg/dL (<2.0) 12/12/21 05:00 Ur Leukocyte Esterase Neg (Negative) 12/12/21 05:00 Urine WBC (Auto) < 1.0 /HPF (0.0-6.0) 12/12/21 05:00 Urine RBC (Auto) < 1.0 /HPF (0.0-6.0) 12/12/21 05:00 U Epithel Cells (Auto) < 1.0 /HPF (0-13.0) 12/12/21 05:00 Laureano/IV: Voiding Method Toilet Active Medications - Current Medications Current Medications: Generic Name Dose Route Start Last Admin Trade Name Freq PRN Reason Stop Dose Admin Acetaminophen 650 mg 12/12/21 03:45 12/13/21 00:02 Acetaminophen 325 Mg Tab PO 650 mg Q4H PRN Administration Pain MILD(1-3)/Fever >100.5/CLARKE Carvedilol 3.125 mg 12/12/21 22:00 12/12/21 22:03 Carvedilol 3.125 Mg Tab PO 3.125 mg BID LUIS ALBERTO Administration Dextrose 0 ml 12/12/21 07:41 Dextrose 10% *Hypoglycemia IV PRN PRN Hypoglycemia Furosemide 40 mg 12/12/21 06:00 12/13/21 05:59 Furosemide 40 Mg/4 Ml Inj IV Not Given BID@0600,1800 [facility] Heparin Sodium (Porcine) 5,000 unit 12/12/21 22:00 12/12/21 22:00 Heparin 5,000 Unit/1 Ml Vial SUB-Q 5,000 unit Q12HR LUIS ALBERTO Administration Insulin Human Lispro 0 unit 12/12/21 07:30 12/12/21 22:00 Insulin Lispro 100 Unit/Ml SUB-Q Not Given ACHS [facility] Protocol Magnesium Hydroxide 30 ml 12/12/21 03:45 Magnesium Hydroxide (Mom) Oral Liqd Udc PO Q4H PRN Constipation Morphine Sulfate 2 mg 12/12/21 03:45 12/12/21 10:10 Morphine 2 Mg/1 Ml Inj IV 2 mg Q4H PRN Administration Pain, Moderate (4-6) Morphine Sulfate 4 mg 12/12/21 03:45 Morphine 4 Mg/1 Ml Inj IV Q4H PRN Pain , Severe (7-10) Ondansetron HCl 4 mg 12/12/21 03:45 Ondansetron 4 Mg/2 Ml Inj IV Q8H PRN Nausea And Vomiting Sodium Chloride 10 ml 12/12/21 10:00 12/12/21 22:11 Sodium Chloride 0.9% 10 Ml Flush Syringe IV 10 ml BID LUIS ALBERTO Administration Sodium Chloride 10 ml 12/12/21 03:45 Sodium Chloride 0.9% 10 Ml Flush Syringe IV PRN PRN LINE FLUSH Nutrition/Malnutrition Assess - Dietary Evaluation Nutrition/Malnutrition Findings: Nutrition Notes Start: 12/12/21 14:50 Freq: Status: Active Protocol: Document 12/12/21 14:50 FLORENCE (Rec: 12/12/21 14:57 FLORENCE [email or web address]) Nutrition Notes Need for Assessment generated from: MD Order,Education Initial or Follow up Brief Note Current Diagnosis Respiratory Failure Other Pertinent Diagnosis Pulmonary Edema, NSTEMI, Hyperglycemia. Current Diet Cardiac Diet (since B 12/12), NPO (since 12/13 00:01). Height 5 ft Weight 45.359 kg [place] Body Weight (kg) 45.45 BMI 19.5 Weight change and time frame None reported at admission. Weight Status Appropriate Subjective/Other Information RD consult for Nutrition Education. No reports available on Pt's PO intake of meals at the time . Pt still on critical conditions, not a candidate for Nutrition Education at the time, will assess feasibility on F/U. Percent of energy/protein needs met: Prescribed Cardiac Diet provides for energy/protein needs (2,230 Kcal/85 g) during LOS. Nutrition Intervention Follow-Up By: 12/17/21 Additional Comments Nutrition education will be provided on F/U, if feasible. Continue monitoring food tolerance, %PO intake of meals , and BM.
[2021-12-13] MEDS ORDERED: HEPARIN 10,000 UNITS/10 ML VIAL ONE (10:12)
[2021-12-13] MEDS ORDERED: MIDAZOLAM 2 MG/2 ML INJ ONE (10:12)
[2021-12-13] MEDS ORDERED: HEPARIN/NS 5000 UNIT/500ML 1,000 ML IR ONE (10:12)
[2021-12-13] MEDS ORDERED: VERAPAMIL 5 MG/2 ML INJ ONE (10:13)
[2021-12-13] MEDS ORDERED: LIDOCAINE (2%) 20 MG/1 ML VIAL 20 ML MDV INFILTRATI ONE ×2 (10:13→10:54)
[2021-12-13] MEDS ORDERED: fentaNYL 100 MCG/2 ML INJ ONE (10:13)
[2021-12-13] MEDS ORDERED: NITROGLYCERIN SYRINGE 0 ML ONE (10:13)
[2021-12-13] MEDS ORDERED: ASPIRIN 81 MG TAB CHEW ONE (10:28)
[2021-12-13] MEDS ORDERED: ASPIRIN 81 MG TAB CHEW PO ONE (10:30)
[2021-12-13] MEDS ORDERED: MIDAZOLAM 2 MG/2 ML INJ IV ONE ×3 (10:52→11:05)
[2021-12-13] MEDS ORDERED: fentaNYL 100 MCG/2 ML INJ IV ONE ×3 (10:53→11:06)
[2021-12-13] MEDS ORDERED: HEPARIN 10,000 UNITS/10 ML VIAL IV ONE (10:58)
[2021-12-13] MEDS ORDERED: HYDROcodone/ACETAMINOPHEN 5-325 MG TAB PO PRN (12:00)
[2021-12-13] MEDS ORDERED: traMADol 50 MG TAB PO PRN (12:00)
--- NOTE | 2021-12-13 12:05 | Cardiac Catherization Report ---
DATE OF SERVICE: 12/13/2021 DATE OF PROCEDURE: 12/13/2021 INDICATIONS: The patient is a 61-year-old female with no previous cardiac evaluation done, presents to Emergency Room at [facility] due to shortness of breath of few months' duration. She is not able to lie down flat. She was found to be in congestive heart failure with elevated proBNP of 27,000. LDL was found to be 174 mg/dL. Chest x-ray showed bilateral increased interstitial markings. Echocardiogram showed ejection fraction of 15-20% with moderate , and mild aortic regurgitation. The patient denied any history of hypertension or diabetes in the past, except history of chronic smoking. The patient was brought to the catheterization laboratory for further evaluation of her coronary artery disease and cardiomyopathy in addition to aortic stenosis. The patient is aware of the procedure, potential complications, and alternatives of therapy available. DESCRIPTION OF PROCEDURE: The patient was brought to the catheterization laboratory and evaluated for moderate sedation and was felt to be an appropriate candidate for moderate sedation and received IV Versed and fentanyl. Subsequently, the patient was prepared in a standard fashion with sterile drapes. Local anesthesia was given in the right wrist area and right radial artery puncture was made using 21-gauge arterial puncture needle. Left ventriculogram was performed using hand injection and aortic gradient was noted. Also angiograms of the left coronary artery and right coronary artery were obtained using JL3.5 catheter and a JR4 coronary catheters respectively. Coronary angiography failed to reveal the circumflex artery, meaning this may be coming anomalously arising separately from LAD; however, circumflex artery is not visualized. Considering the above findings, it was felt the patient may benefit from coronary CT angiogram along with evaluation of the aortic valve with CTA. Hence, procedure was aborted, catheter and sheath were removed and good hemostasis was achieved with application of radial band. The patient tolerated the procedure well. No untoward complications were noted. At the end of the procedure, the patient is breathing normally, communicating normally with no focal deficits and hemodynamically stable. The patient's moderate sedation started at 10:55 a.m. and ended at 11:15 a.m. The patient was transferred to the room in stable condition. No vascular complications noted. Following findings were noted. HEMODYNAMICS: Aortic pressure 102/44. Left ventricular pressure 129/19. No gradient across the aortic valve. Left ventriculogram done with hand injection showed markedly dilated left ventricle with severe diffuse hypokinesis. Ejection fraction of 15-20%. There is a gradient across the aortic valve with a [id number] gradient of 27 mmHg and mean gradient of 22 mmHg. Angiography of the left coronary artery showed LAD arising seperately with no visualization of circumflex artery. It showed a proximal focal lesion approaching 30-40%. Mid smooth lesion noted 20-30%. This curves around the apex. Circumflex artery is not visualized. Right coronary artery arises normally from right coronary cusp. Code codominant vessel. Mild disease noted. COLLATERALS: None. FINAL IMPRESSION: Severe left ventricular systolic dysfunction, ejection fraction 15-20%. Mitral regurgitation was not evaluated because of limited amount of dye injected. There is a mild gradient noted across the aortic valve, mean gradient of 22 mmHg and peak gradient of 27 mmHg. However, significance of this is not clear considering severe left ventricular systolic dysfunction noted and also, circumflex artery is not visualized. Considering this, we will consider CCTA of the coronaries along with evaluation of the aortic valve using CTA. Continue medical therapy for her severe LV dysfunction. Discussed with Dr. Wilcox at [facility] who accepted transfer for further diagnostic evaluation. TID: [id number] RECEIPT: [id number] BECKY/RIK JUDGE
--- NOTE | 2021-12-13 13:28 | Progress Note ---
Assessment and Plan Patient is a 61-year-old female who presented with shortness of breath over several months Acute HFrEF Acute hypoxic respiratory failure Cardiomyopathy Aortic stenosis NSTEMI Smoker Echocardiogram 12/12/2021-EF 15 to 20%. LV is severely dilated. Severe global hypokinesis of LV. Moderate aortic stenosis. Mild aortic regurgitation. Cardiac cath 12/13/2021-severe LV dysfunction EF 15 to 20%. Mitral regurgitation not evaluated because of limited amount of time injected. Mild gradient noted across aortic valve mean gradient of 20 mmHg and peak gradient 27 mmHg. Significance is not clear considering severe LV dysfunction noted and also circumflex is not visualized will consider CCTA of coronaries. Plan: Continue Coreg 3.125 mg p.o. twice daily, and diuresis with Lasix Cath results noted above Due to severely decreased EF and not well visualized circumflex patient to be transferred to [place] for further evaluation. Case discussed with accepting provider Dr. Wilcox Discussed plan of care with patient who verbalized understanding and agreement Patient seen in conjunction with Dr. Encinas who agrees with this plan of care - Patient Problems (1) Cardiomyopathy Current Visit: Yes Status: Acute (2) Acute HFrEF (heart failure with reduced ejection fraction) Current Visit: Yes Status: Acute (3) Acute respiratory failure with hypoxia Current Visit: Yes Status: Acute (4) Pulmonary edema Current Visit: Yes Status: Acute (5) Smoker Current Visit: Yes Status: Acute (6) NSTEMI (non-ST elevated myocardial infarction) Current Visit: Yes Status: Acute (7) Hyperglycemia Current Visit: Yes Status: Acute Subjective Date of service: 12/13/21 Principal diagnosis: Acute HFrEF Interval history: Patient for cardiac cath this a.m. sinus 60-70s on monitor with no events Objective Vital Signs Temp Pulse Resp BP Pulse Ox 12/13/21 08:17 98.2 F 74 18 116/59 96 12/13/21 04:23 97.7 F 72 16 108/62 100 12/13/21 00:03 97.8 F 87 16 116/65 99 12/12/21 19:59 98.3 F 83 18 115/67 99 12/12/21 17:05 97.4 F L 78 16 110/62 100 12/12/21 16:19 97 - Physical Examination General: No Apparent Distress HEENT: Positive: Normocephaly Neck: Positive: trachea midline Cardiac: Positive: Reg Rate and Rhythm Lungs: Positive: Decreased Breath Sounds Neuro: Positive: Grossly Intact Abdomen: Positive: Soft Skin: Negative: Rash, Suspicious Lesions, Ulceration Extremities: Present: upper extr. pulses, edema - Labs and Meds Cardiac Enzymes 12/13/21 Range/Units 06:56 AST 28 (5-40) units/L CBC 12/13/21 Range/Units 06:56 WBC 6.0 (4.5-11.0) K/mm3 RBC 4.21 (3.65-5.03) M/mm3 Hgb 12.0 (10.1-14.3) gm/dl Hct 35.7 (30.3-42.9) % Plt Count 119 L (140-440) K/mm3 Lymph # (Auto) 2.4 (1.2-5.4) K/mm3 [place] # (Auto) 0.4 (0.0-0.8) K/mm3 Eos # (Auto) 0.1 (0.0-0.4) K/mm3 Baso # (Auto) 0.0 (0.0-0.1) K/mm3 Comprehensive Metabolic Panel 12/13/21 Range/Units 06:56 Sodium 136 L (137-145) mmol/L Potassium 3.5 L (3.6-5.0) mmol/L Chloride 99.8 (98-107) mmol/L Carbon Dioxide 23 D (22-30) mmol/L BUN 18 H (7-17) mg/dL Creatinine 1.0 (0.6-1.2) mg/dL Glucose 95 (65-100) mg/dL Calcium 9.4 (8.4-10.2) mg/dL AST 28 (5-40) units/L ALT 30 (7-56) units/L Alkaline Phosphatase 46 (35-129) units/L Total Protein 6.6 (6.3-8.2) g/dL Albumin 3.8 L (3.9-5) g/dL
[2021-12-13 17:44] VITALS: BP 116/56
--- NOTE | 2021-12-15 17:16 | Electrocardiograph Report ---
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
== END 2021-12-13 19:20 | disposition home or self-care (01) | DRG 280 ==
LOC: SUATTDRO 00:26 → ED 00:26 → 4A 03:46
PROVIDERS: ADMIT Internal Medicine Geriatric Medicine; ATTEND Hospitalist
PROC: 4A033R1 Measurement of Arterial Saturation, Peripheral, Percutaneous Approach (ICD-10-PCS; 2021-12-12)
PROC: 4A023N7 Measurement of Cardiac Sampling and Pressure, Left Heart, Percutaneous Approach (ICD-10-PCS; principal; 2021-12-13)
PROC: B2111ZZ Fluoroscopy of Multiple Coronary Arteries using Low Osmolar Contrast (ICD-10-PCS; 2021-12-13)
PROC: B2151ZZ Fluoroscopy of Left Heart using Low Osmolar Contrast (ICD-10-PCS; 2021-12-13)
DX: I21.4 Non-ST elevation (NSTEMI) myocardial infarction (principal); I50.21 Acute systolic (congestive) heart failure; J96.01 Acute respiratory failure with hypoxia; J81.1 Chronic pulmonary edema; I42.9 Cardiomyopathy, unspecified; E11.65 Type 2 diabetes mellitus with hyperglycemia; F17.200 Nicotine dependence, unspecified, uncomplicated; I35.0 Nonrheumatic aortic (valve) stenosis
CPT/HCPCS: 36415; 71045; 80053; 80061; 81001; 82803; 82962; 83036; 83735; 83880; 84484; 85007; 85014; 85018; 85025; 85520; 85610; 85730; 93005; 93010; 93306; 93458; 94644; G0378; J1815; J3490; C1894; C8929; J1644; J1940; J2250; J2270; J3010; Q9967

== ENCOUNTER 2022-06-04 03:06 | Emergency (ER) | payer SELFPAY ==
[2022-06-04 03:28] VITALS: BP 177/76
== END 2022-06-04 05:51 | disposition left against medical advice (07) ==
LOC: ED 03:06
DX: R06.00 Dyspnea, unspecified (principal); Z53.21 Procedure and treatment not carried out due to patient leaving prior to being seen by health care provider

== ENCOUNTER 2022-06-07 08:33 | Emergency (ER) | payer SELFPAY ==
[2022-06-07] MEDS ORDERED: IPRATROPIUM 0.02% NEBU 2.5 ML IH ONE (08:56)
[2022-06-07] MEDS ORDERED: ALBUTEROL 2.5 MG/3 ML NEBU IH ONE (08:56)
[2022-06-07] MEDS ORDERED: FUROSEMIDE 40 MG/4 ML INJ IV ONE (08:56)
[2022-06-07 09:51] LABS: Basophils % (Auto) 0.4 % (0.0-1.8); Eosinophils # (Auto) 0.1 K/mm3 (0.0-0.4); Eosinophils % (Auto) 1.5 % (0.0-4.3); Hematocrit 32.9 % (30.3-42.9); Lymphocytes # (Auto) 1.7 K/mm3 (1.2-5.4); Lymphocytes % (Auto) 20.3 % (13.4-35.0); Mean Corpuscular HGB Conc 33 % (30-34); Mean Corpuscular Volume 86 fl (79-97); Monocytes # (Auto) 0.3 K/mm3 (0.0-0.8); Monocytes % (Auto) 4.1 % (0.0-7.3); Platelet Count 141 K/mm3 (140-440); Red Blood Count 3.83 M/mm3 (3.65-5.03)
[2022-06-07 10:00] LABS: INR 0.98 (0.87-1.13)
[2022-06-07 10:14] LABS: Creatine Kinase MB 2.2 ng/mL (0.0-4.0)
[2022-06-07 10:16] LABS: Alanine Aminotransferase 21 units/L (7-56); Albumin 4.3 g/dL (3.9-5); BUN/Creatinine Ratio 14; Blood Urea Nitrogen 14 mg/dL (7-17); Calcium 9.3 mg/dL (8.4-10.2); Hemolysis Index 1
--- NOTE | 2022-06-07 11:27 | XRay Report ---
CHEST 1 VIEW 06/07/2022 10:58 AM INDICATION / CLINICAL INFORMATION: Dyspnea. COMPARISON: 12/12/21. FINDINGS: SUPPORT DEVICES: None. HEART / MEDIASTINUM: Mild to moderate generalized cardiomegaly is similar to the prior study. Pulmona ry vascular congestion has improved. There is calcification in the aortic arch without aneurysm. LUNGS / PLEURA: Interstitial lung markings in both lower lung zones are minimally increased. There ma y be trace bilateral pleural effusions. No pneumothorax. ADDITIONAL FINDINGS: No significant additional findings. IMPRESSION: Cardiomegaly with mild congestive heart failure. Signer Name: Fan Vargas MD Signed: 06/07/2022 11:23 AM Workstation Name: [email or web address]
--- NOTE | 2022-06-07 11:35 | Electrocardiograph Report ---
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
--- NOTE | 2022-06-07 13:09 | Emergency Department Report ---
ED General Adult HPI - General Chief complaint: Dyspnea/Respdistress Stated complaint: SOB PUI?: No Time Seen by Provider: 06/07/22 08:56 Source: patient, EMS Mode of arrival: Stretcher Limitations: No Limitations - History of Present Illness Initial comments: PT ARRIVING FROM HOME FOR SOB. 93%RA. RECEIVED ALBUTEROL 5MG, ASA 324MG, NITRO x1 SL EN ROUTE. 20G R AC. -: Gradual, days(s) Location: chest Severity scale (0 -10): 0 Associated Symptoms: cough, shortness of breath. denies: headaches, loss of appetite - Related Data Allergies Allergy/AdvReac Type Severity Reaction Status Date / Time No Known Allergies Allergy Verified 06/07/22 08:38 ED Review of Systems ROS: Stated complaint: SOB Other details as noted in HPI Constitutional: denies: chills, fever Eyes: denies: eye pain, eye discharge, vision change ENT: denies: ear pain, throat pain Respiratory: denies: cough, shortness of breath, wheezing Cardiovascular: denies: chest pain, palpitations Endocrine: no symptoms reported Gastrointestinal: denies: abdominal pain, nausea, diarrhea Genitourinary: denies: urgency, dysuria, discharge Musculoskeletal: denies: back pain, joint swelling, arthralgia Skin: denies: rash, lesions Neurological: denies: headache, weakness, paresthesias Psychiatric: denies: anxiety, depression Hematological/Lymphatic: denies: easy bleeding, easy bruising ED Past Medical Hx - Past Medical History Hx Heart Attack/AMI: Yes Hx Congestive Heart Failure: No (newly diagnosis) Hx HIV: No - Social History Smoking Status: Former Smoker Substance Use Type: None ED Physical Exam - General Limitations: No Limitations General appearance: alert, in no apparent distress - Head Head exam: Present: atraumatic, normocephalic - Eye Eye exam: Present: normal appearance - ENT ENT exam: Present: mucous membranes moist - Neck Neck exam: Present: normal inspection - Respiratory Respiratory exam: Present: normal lung sounds bilaterally. Absent: respiratory distress - Cardiovascular Cardiovascular Exam: Present: regular rate, normal rhythm. Absent: systolic murmur, diastolic murmur, rubs, gallop - GI/Abdominal GI/Abdominal exam: Present: soft, normal bowel sounds - Extremities Exam Extremities exam: Present: normal inspection - Back Exam Back exam: Present: normal inspection - Neurological Exam Neurological exam: Present: alert, oriented X3 - Psychiatric Psychiatric exam: Present: normal affect, normal mood - Skin Skin exam: Present: warm, dry, intact, normal color. Absent: rash ED Course Vital Signs 06/07/22 06/07/22 06/07/22 08:36 09:00 10:41 Temperature 98.0 F 98.4 F Pulse Rate 88 66 60 Respiratory 28 H 20 18 Rate Blood Pressure 150/52 Blood Pressure 150/70 150/52 147/49 [Left] O2 Sat by Pulse 98 100 100 Oximetry 06/07/22 12:24 Temperature 98.4 F Pulse Rate 79 Respiratory 20 Rate Blood Pressure Blood Pressure 134/48 [Left] O2 Sat by Pulse 99 Oximetry ED Medical Decision Making - Lab Data Result diagrams: 06/07/22 09:00 06/07/22 09:00 - EKG Data -: EKG Interpreted by Me EKG shows normal: sinus rhythm - EKG Data Interpretation: LVH - Radiology Data Radiology results: report reviewed, image reviewed - Medical Decision Making work up showed CHF , lasix given rt feels better o2 sat 98-99on RA will increase her lasix to once daily from every other day , will see her doctor on jun 24 Critical care attestation.: If time is entered above; I have spent that time in minutes in the direct care of this critically ill patient, excluding procedure time. ED Disposition Clinical Impression: SOB (shortness of breath), CHF exacerbation Disposition: HOME / SELF CARE / HOMELESS Is pt being admited?: No Does the pt Need Aspirin: No Condition: Stable Instructions: Shortness of Breath, Adult, [id number], Heart Failure, Self Care, [id number] Referrals: PRIMARY CARE, [Primary Care Provider] - 3-5 Days
[2022-06-07 13:48] VITALS: BP 138/72
== END 2022-06-07 13:48 | disposition home or self-care (01) ==
LOC: ED 08:33
DX: I50.9 Heart failure, unspecified (principal); Z87.891 Personal history of nicotine dependence; Z79.899 Other long term (current) drug therapy
CPT/HCPCS: 36415; 71045; 80053; 82550; 82553; 83690; 83735; 83880; 84484; 85025; 85610; 93005; 96374; 99284; J1940